=== PATIENT | male | born 1965 | race Caucasian/White ===

== ENCOUNTER → 2020-11-26 | Outpatient (CLI) | payer MEDICARE ==
--- NOTE | 2020-11-26 22:03 | CT ---
EXAMINATION TYPE: CT abdomen wo/w con DATE OF EXAM: 11/26/2020 COMPARISON: None. HISTORY: RUQ pain CT DLP: 1862.7 mGycm, Automated Exposure Control for Dose Reduction was Utilized. CONTRAST: CT scan of the abdomen is performed with oral and without and with IV Contrast, patient injected with 100 mL of Isovue 300. FINDINGS: LUNG BASES: No significant abnormality is appreciated. LIVER/GB: Cholecystectomy clips are present. No biliary dilatation. PANCREAS: No significant abnormality is seen. SPLEEN: Small splenule anterior splenic hilum axial image 24 series 3. ADRENALS: No significant abnormality is seen. KIDNEYS: No renal stones on noncontrast images. Postcontrast images show symmetric cord measuring up take and excretion without hydronephrosis seen bilaterally. Subcentimeter thin-walled cyst laterally lower pole left kidney seen series 9 image 35. BOWEL: The oral contrast only reaches proximal ileal loops. No suspicious small or large bowel dilata tion. Mild wall thickening in the transverse and left colon presumed product of poor distention. Norm al-appearing appendix posteriorly from cecum. Small bowel feces sign distal and terminal ileum consis tent with delayed passage of ingested material to colonic level. LYMPH NODES: No greater than 1cm abdominal lymph nodes are appreciated. OSSEOUS STRUCTURES: Spinal stimulator device posterior mid to lower thoracic spinal canal noted OTHER: Mild narrowing at celiac artery origin sagittal image 70. IMPRESSION: No bowel obstruction. Delayed passage of ingested material to colonic level noted. No ac [place] finding otherwise seen.
== END ==
LOC: RADCTMAIN 15:35
PROVIDERS: ATTEND Psychiatry & Neurology Pain Medicine
DX: R10.11 Right upper quadrant pain (principal)
CPT/HCPCS: 74170; Q9967